=== PATIENT | female | born 1995 | race Caucasian/White ===

== ENCOUNTER → 2023-07-01 08:52 | Outpatient (CLI) | payer OTHER, SELFPAY ==
[2023-07-01 09:42] LABS: Add Manual Diff / Slide Review NO; Basophils Absolute Auto 0 /uL (0-100); Basophils Percent Auto 0.4 % (0-2); Eosinophils Absolute Auto 0 /uL (0-450); Eosinophils Percent Auto 0.6 % (2-4); Hematocrit 37.1 % (36-46); Hemoglobin 12.6 g/dL (12.0-16.0); Lymphocytes Absolute Auto 1000 /uL (1100-4500); Lymphocytes Percent Auto 20.4 % (25-40); Mean Corpuscular Hemoglobin 33.4 PG (26-34); Mean Corpuscular Volume 98.1 fL (80-100); Monocytes Absolute Auto 400 /uL (0-900); Neutrophils Absolute Auto 3600 /uL (1500-7000); Neutrophils Percent Auto 71.6 % (50-75); Platelet Count 209 X10^3/uL (150-400); Red Blood Cell Count 3.78 X10^6/uL (4.0-5.2); Red Cell Distribution Width 12.2 % (11.6-14.8)
[2023-07-01 10:15] LABS: Appearance Urine UA CLEAR; Bilirubin Urine UA NEGATIVE (NEGATIVE); Color Urine UA YELLOW; Glucose Urine UA NEGATIVE (Negative); Ketones Urine UA NEGATIVE (NEGATIVE); Leukocyte Esterase Urine UA NEGATIVE (NEGATIVE); Nitrite Urine UA NEGATIVE (Negative); Occult Blood Urine UA NEGATIVE (Negative); Protein Urine UA NEGATIVE (Negative); Urobilinogen Urine UA 0.2 E.U./dL (0.2)
[2023-07-01 11:30] LABS: Urine Chlamydia NOT DETECTED; Urine N gonorrhoeae NOT DETECTED
[2023-07-01 11:38] LABS: Hepatitis B Surface Antigen NEGATIVE s/c (NEGATIVE); Rubella Antibody IgG 6.7 IU/mL (>15)
[2023-07-01 11:48] LABS: HIV 1 & 2 Ab/Ag 4th Gen Combo NEGATIVE (NEGATIVE); Hep C Virus Ab w/Reflex Quant NEGATIVE s/c (NEGATIVE)
[2023-07-02 08:12] LABS: RPR Screen Non Reactive (Non Reactive)
[2023-07-02 08:36] LABS: Varicella IgG Antibody 1064 index (Immune >165)
== END ==
PROVIDERS: PCP Family Medicine; Referring Provider Family Medicine; Visit Provider Family Medicine
DX: Z34.01 Encounter for supervision of normal first pregnancy, first trimester (principal)
CPT/HCPCS: 36415; 80055; 81003; 86787; 86803; 86850; 86900; 86901; 87086; 87389; 87491; 87591

== ENCOUNTER → 2023-07-09 15:12 | Outpatient (CLI) | payer OTHER, SELFPAY ==
--- NOTE | 2023-07-09 15:12 | DI.US.S_ITS ---
PROCEDURE: US OB <= 14 WEEKS FETUS INDICATIONS: Dating US OUTSIDE/PRIOR DATING DATA: Last menstrual period (LMP): 04/04/2023 LMP-based estimated date of delivery (PARAMJIT): 01/09/2024 First dating scan (date and location): 07/09/2023 Estimated date of delivery (PARAMJIT) from first dating scan: 01/05/2024 TECHNIQUE: Real-time scanning was performed of the fetus, with image documentation and biometric measurements. Endovaginal scanning: Not performed. COMPARISON: None. FINDINGS: General: A single living intrauterine gestation is present. Presentation: Variable Placenta: Placental position is anterior possibly fundal, without previa. Amniotic fluid: Subjectively normal heart rate: 165 beats per minute. Maternal cervical canal: 3.4 cm long. Normal lower limit is 2.5 cm. biometrics: Biparietal diameter: 2.6 cm, 14 weeks 3 days Head circumference: 9.7 cm, 14 weeks 3 days Abdominal circumference: 8.2 cm, 14 weeks 4 days Femur length: 1.3 cm, 13 weeks 5 days Clinically estimated gestational age: 13 weeks 5 days Composite gestational age from present scan: 14 weeks 2 days IMPRESSION: Single intrauterine with estimated gestational age of 14 weeks 2 days corresponding to an ultrasound PARAMJIT of 01/05/2024. We strive to produce accurate, complete, and clear reports of imaging services. To assist us in improving patient care, this report was composed using standard report templates and voice recognition software. Therefore, it may contain abnormal punctuation, insertions and/or omissions. Occasional wrong-word or sound-alike substitutions may occur. Though we review the report and make efforts to correct it, we do recommend that the report be read carefully in proper context to recognize any text inaccuracies. Approved by: Laron Diaz M.D. on 07/09/2023 at 16:57
== END ==
LOC: US 15:12
PROVIDERS: PCP Family Medicine; Referring Provider Family Medicine; Visit Provider Family Medicine
DX: Z34.82 Encounter for supervision of other normal pregnancy, second trimester (principal); Z3A.14 14 weeks gestation of pregnancy
CPT/HCPCS: 76801

== ENCOUNTER → 2023-08-30 14:17 | Outpatient (CLI) | payer OTHER, SELFPAY ==
--- NOTE | 2023-08-30 14:18 | DI.US.S_ITS ---
PROCEDURE: US OB >= 14 WEEKS FETUS INDICATIONS: Anatomy of fetus OUTSIDE/PRIOR DATING DATA: Last menstrual period (LMP): 04/04/2023. LMP-based estimated date of delivery (PARAMJIT): 01/09/2024. First dating scan (date and location): 07/09/2023. Estimated date of delivery (PARAMJIT) from first dating scan: 01/05/2024. The calculations are made using the clinical PARAMJIT of 01/09/2024. TECHNIQUE: Real-time scanning was performed of the fetus, with image documentation and biometric measurements. Endovaginal scanning: Not performed. COMPARISON: [facility], , OB <= 14 WEEKS FETUS, 07/09/2023, 15:23. FINDINGS: General: A single living intrauterine gestation is present. Presentation: Vertex. Placenta: Placental position is posterior, without previa. Amniotic fluid index: 17.5 cm, normal range is 5-24 cm. Single deepest vertical pocket is 4.8 cm. heart rate: 153 beats per minute. Maternal cervical canal: 4 cm long. Normal lower limit is 2.5 cm. No funneling. biometrics: Biparietal diameter: 5.2 cm, 21 weeks 6 days Head circumference: 18.9 cm, 21 weeks 1 day Abdominal circumference: 18.0 cm, 22 weeks 6 days Femur length: 3.6 cm, 21 weeks 3 days Clinically estimated gestational age: 21 weeks 1 day Composite gestational age from present scan: 21 weeks 6 days Estimated weight and percentile: 473 g, 89th percentile Anatomic survey: Neuro: Ventricles are non-dilated at less than 10 mm. Cisterna magna is normal at 3-11 mm. Cerebellum is normal in size and morphology. Nuchal skin fold: Normal at less than 6 mm between 14-21 weeks gestational age. Face: Nose and lips, facial profile are normal. Spine: No evidence for spina bifida. Heart: 4-chambered heart is present, with normal ventricular outflow tracts. Diaphragm: Diaphragm is intact. Stomach: Left-sided stomach is present. Kidneys: No hydronephrosis. Normal is less than 5 mm in 2nd trimester, less than 7 mm in 3rd trimester. Cord: 3-vessel cord. Velamentous cord insertion. Bladder: Normal in size. Extremities: All 4 extremities identified. IMPRESSION: 1. Aguilar living intrauterine at 21 weeks 6 days based on today's ultrasound. This is concordant with the prior ultrasound. Fetus is in the 89th percentile for weight. 2. Normal amniotic fluid. Velamentous umbilical cord insertion. 3. Normal anatomic survey. Consider follow-up OB ultrasound. We strive to produce accurate, complete, and clear reports of imaging services. To assist us in improving patient care, this report was composed using standard report templates and voice recognition software. Therefore, it may contain abnormal punctuation, insertions and/or omissions. Occasional wrong-word or sound-alike substitutions may occur. Though we review the report and make efforts to correct it, we do recommend that the report be read carefully in proper context to recognize any text inaccuracies. Dictated by: Donald Silva M.D. on 08/30/2023 at 16:51 Approved by: Donald Silva M.D. on 08/30/2023 at 16:59
== END ==
LOC: US 14:17
PROVIDERS: PCP Family Medicine; Referring Provider Family Medicine; Visit Provider Family Medicine
DX: Z34.82 Encounter for supervision of other normal pregnancy, second trimester (principal); Z3A.21 21 weeks gestation of pregnancy
CPT/HCPCS: 76811

== ENCOUNTER → 2023-10-12 12:03 | Outpatient (CLI) | payer OTHER, SELFPAY ==
[2023-10-12 13:32] LABS: Add Manual Diff / Slide Review NO; Basophils Absolute Auto 0 /uL (0-100); Basophils Percent Auto 0.4 % (0-2); Eosinophils Absolute Auto 0 /uL (0-450); Eosinophils Percent Auto 0.6 % (2-4); Hematocrit 33.1 % (36-46); Hemoglobin 11.2 g/dL (12.0-16.0); Lymphocytes Absolute Auto 1200 /uL (1100-4500); Lymphocytes Percent Auto 15.3 % (25-40); Mean Corpuscular HGB Conc 33.9 % (30-36); Mean Corpuscular Hemoglobin 33.6 PG (26-34); Mean Corpuscular Volume 99.1 fL (80-100); Monocytes Absolute Auto 400 /uL (0-900); Monocytes Percent Auto 5.6 % (3-14); Neutrophils Absolute Auto 6300 /uL (1500-7000); Neutrophils Percent Auto 78.1 % (50-75); Platelet Count 215 X10^3/uL (150-400); Red Blood Cell Count 3.34 X10^6/uL (4.0-5.2); Red Cell Distribution Width 13.4 % (11.6-14.8); White Blood Cell Count 8.1 X10^3/uL (4.5-11.0)
[2023-10-12 13:45] LABS: Alanine Aminotransferase 11 IU/L (<35); Albumin 3.8 g/dL (3.5-5.0); Albumin Globulin Ratio 1.5 (1.0-2.8); Alkaline Phosphatase 37 U/L (38-126); Aspartate Aminotransferase 22 IU/L (14-36); Bilirubin Total 0.4 mg/dL (0.2-1.3); Blood Urea Nitrogen 8 mg/dL (7-17); Calcium 8.6 mg/dL (8.4-10.2); Carbon Dioxide 25 mmol/L (22-32); Chloride 109 mmol/L (98-107); Estimated Glomerular Filt Rate > 60 mL/min (>60); GTT (PREG) 1 Hour PP 50gm Dose 95 mg/dL (76-139); Globulin 2.6 g/dL (1.7-4.1); Glucose 95 mg/dL (70-100); HEMOLYSIS < 15 (0-50); Potassium 3.3 mmol/L (3.4-5.1); Sodium 135 mmol/L (137-145); Total Protein 6.4 g/dL (6.3-8.2)
[2023-10-12 13:50] LABS: Creatinine Urine Random 93.6 mg/dL
[2023-10-12 13:55] LABS: Protein (Total) Urine Random < 0.6 mg/dL (0-12)
[2023-10-12 14:16] LABS: Hepatitis B Surface Antigen NEGATIVE s/c (NEGATIVE); Rubella Antibody IgG 5.4 IU/mL (>15)
[2023-10-13 08:22] LABS: RPR Screen Non Reactive (Non Reactive)
== END ==
PROVIDERS: PCP Family Medicine; Referring Provider Family Medicine; Visit Provider Family Medicine
DX: Z34.80 Encounter for supervision of other normal pregnancy, unspecified trimester (principal); G43.909 Migraine, unspecified, not intractable, without status migrainosus
CPT/HCPCS: 36415; 80053; 80055; 82570; 82950; 84156

== ENCOUNTER → 2023-11-24 11:03 | Outpatient (CLI) | payer OTHER, SELFPAY ==
[2023-11-24 17:39] LABS: Appearance Urine UA CLEAR; Bilirubin Urine UA NEGATIVE (NEGATIVE); Color Urine UA YELLOW; Glucose Urine UA NEGATIVE (Negative); Ketones Urine UA 3+ (NEGATIVE); Leukocyte Esterase Urine UA NEGATIVE (NEGATIVE); Nitrite Urine UA NEGATIVE (Negative); Occult Blood Urine UA NEGATIVE (Negative); Protein Urine UA NEGATIVE (Negative); Urobilinogen Urine UA 0.2 E.U./dL (0.2)
[2023-11-24 17:40] LABS: pH Urine UA 6.5 (4.5-8.0)
[2023-11-24 17:46] LABS: Bacteria Urine Occasional (0-1); Culture Indicated Urine Specimen Cultured; RBC Urine 1-5/HPF (0-5/HPF); Squamous Epithelial Cell Urine 10-30 /HPF (0-5/HPF); Urine Volume 10mL (spun); WBC Urine 0-1/HPF (0-5/HPF)
== END ==
PROVIDERS: PCP Family Medicine; Visit Provider Family Medicine
DX: O26.899 Other specified pregnancy related conditions, unspecified trimester (principal); R10.9 Unspecified abdominal pain
CPT/HCPCS: 81001; 87086; 87210; 87491; 87591

== ENCOUNTER → 2023-12-15 11:58 | Outpatient (CLI) | payer OTHER, SELFPAY ==
[2023-12-16 08:13] LABS: Strep Grp B PCR NEG for Grp B Strep
== END ==
PROVIDERS: PCP Family Medicine; Visit Provider Family Medicine
DX: Z34.80 Encounter for supervision of other normal pregnancy, unspecified trimester (principal)
CPT/HCPCS: 87653

== ENCOUNTER 2023-12-17 03:54 | Inpatient (IN) | payer OTHER, SELFPAY ==
[2023-12-17 04:54] VITALS: BP 122/58
[2023-12-17 05:40] LABS: Add Manual Diff / Slide Review NO; Basophils Absolute Auto 0 /uL (0-100); Basophils Percent Auto 0.5 % (0-2); Eosinophils Absolute Auto 100 /uL (0-450); Eosinophils Percent Auto 1.1 % (2-4); Hematocrit 35.9 % (36-46); Hemoglobin 12.3 g/dL (12.0-16.0); Lymphocytes Absolute Auto 2000 /uL (1100-4500); Lymphocytes Percent Auto 23.5 % (25-40); Mean Corpuscular HGB Conc 34.1 % (30-36); Mean Corpuscular Hemoglobin 32.7 PG (26-34); Monocytes Absolute Auto 700 /uL (0-900); Monocytes Percent Auto 7.7 % (3-14); Neutrophils Absolute Auto 5700 /uL (1500-7000); Neutrophils Percent Auto 67.2 % (50-75); Platelet Count 197 X10^3/uL (150-400); Red Blood Cell Count 3.74 X10^6/uL (4.0-5.2); Red Cell Distribution Width 12.8 % (11.6-14.8); White Blood Cell Count 8.5 X10^3/uL (4.5-11.0)
[2023-12-17] MEDS: fentaNYL 100 MCG/2 ML INJ IV ×2 (06:07→07:01)
[2023-12-17] MEDS: LACTATED RINGERS 1,000 ML 100 ML IV (06:08)
[2023-12-17] MEDS: OXYTOCIN PREMIX 30 UNIT/500 ML PLAST..BAG 200 UNIT IV (06:08)
[2023-12-17] MEDS: LIDOCAINE 1% 20 ML INJ (06:14)
--- NOTE | 2023-12-17 06:47 | P.HPOB_ITS ---
OB HPI Date/Time Date of admission: 12/17/23 Date Patient Seen: 12/17/23 Time Patient Seen: 05:13 History of Present Condition Chief complaint: Labor : 3 Para: 1 Estimated Date of Delivery: 01/09/24 Estimated Gestational Age (weeks): 36w5d Narrative: Paris Seo is a 28 year old presenting at 36w5d with painful contractions occurring every 2-4 minutes and concern for rupture of membranes. On arrival, AmniSure was faintly positive so cervical check was performed and SVE was found to be 7 cm/90/0. 10 minutes after her cervical check she had witnessed spontaneous rupture of membranes with clear fluids. Her contraction frequency increased to every 2 minutes. was uncomplicated aside from velamentous cord insertion noted. Glucose tolerance test was normal, Tdap was given, blood type is A positive. She was GBS negative and did not require intrapartum prophylaxis. History of Present care: good care Dating criteria: LMP confirmed by 1st trimester US Obstetrical complications: none Medical complications: none Preadmission Labs Blood type: A (+) positive -: Antibody screen: negative, GBS status: negative, HBsAG: negative, HIV: negative and RPR/VDLR: negative -: Chlamydia screen: not detected and Gonorrhea screen: not detected -: Rubella: not immune and Varicella: immune HCT: 12.3 HCAB: negative PAP: Abnormal (abnormal 1 yr ago, needed colpo, discussed at visit and plan for PAP) 1 hr GTT: 95 Prior (ies) History: Prior delivery 39 weeks 5 days, 7 lb 15 oz , in 2019 Evaluation Evaluation Baseline heart rate: 140 Variability: Moderate (11-25) monitor accelerations: Present Monitor Decelerations: Absent Contraction Frequency (minutes): 4 Uterine Contraction Intensity: Strong/Firm Category of Tracing: Reactive Status: Category l Dilation (cm): 7 Effacement (%): 90 Dilation: >/=5 cm Effacement: >/=80% station: 0 Non-invasive Membranes Rupture Test: positive Comments: ROm occuring soon after exam and was whitnessed - clear fluid at 04:38AM on 12/17/23 [facility] Medical History (Updated 07/01/23 @ 12:03 by Aurora Xavier MD) Rubella non-immune status, antepartum Migraines Normal vaginal delivery Abnormal Pap smear of cervix Surgical History (Updated 06/28/23 @ 15:44 by Calli Bernabe, RN) H/O tooth extraction History of tonsillectomy [place] teeth extracted History of colposcopy (~07/15/22) Family History (Updated 06/28/23 @ 15:46 by Calli Bernabe, RN) Mother History of hysterectomy Ovarian cancer Social History marital status: unmarried,single number of children: 1 (Mostly lives w/ his dad in [place]) household members: friend(s) (roommates) lives independently: Yes caregiver/support person: Yes (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) housing: apartment (on waiting list for [facility] [address]) pets and animals: No education level: high school 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, 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) current occupational exposures/hazards: No special rodrigue needs: No travel history: recent ([place], domestic) seatbelt use: always water heater temp set < 120 deg: Yes working smoke detector in home: Yes fire extinguisher in home: Yes carbon monox detector in home: Yes firearms in home: No do you feel safe at home: Yes Smoking Status: Never smoker second hand exposure: No alcohol intake: former (occasionally when not ) substance use type: does not use during the past year weight has: remained stable well-balanced diet: about half the time daily servings fruits/ve-4 caffeine: Yes (AM cup coffee) Type(s) of exercise: walking Meds Home Medications and Allergies Home Medications Medication Instructions Recorded Confirmed Type vitamin-ferrous sulfate tab PO 06/28/23 12/15/23 History 27 mg iron-folic acid 0.8 mg tablet doxylamine succinate 25 mg tablet 25 mg PO BEDTIME PRN insomnia #30 07/01/23 12/15/23 Rx (Unisom (doxylamine)) tabs Allergies Allergy/AdvReac Type Severity Reaction Status Date / Time cefaclor [From Ceclor] Allergy Mild Rash Verified 12/15/23 10:32 Review of Systems Review of Systems Narrative: + contractions + slight pink vaginal bleeding + LOF OB Exam Vital signs Blood Pressure: 122/58 Pulse Rate: 103 Temperature: 36.1 F Narrative Exam Narrative: GEN: Healthy appearing, well-developed, uncomfortable appearing, laboring PSYCH: Good Judgment. AOx3. Normal memory, mood, and affect HEENT: -Head: NC/AT -Eyes: No discharge or redness CV: warm and well perfused LUNGS: breathing comfortably on RA ABd: Gravid : ant lip/100+1 on SVE SKIN: Warm, well perfused. No skin rashes or abnormal lesions MSK: Normal gait. No deformities NEURO: Ambulating with no limitations. No focal deficits Objective Labs 12/17/23 05:25 Labs: Laboratory Results - last 24 hr 12/17/23 05:25 WBC 8.5 RBC 3.74 L Hgb 12.3 Hct 35.9 L MCV 96.0 MCH 32.7 MCHC 34.1 RDW 12.8 Plt Count 197 Neut % (Auto) 67.2 Lymph % (Auto) 23.5 L [place] % (Auto) 7.7 Eos % (Auto) 1.1 L Baso % (Auto) 0.5 Neut # (Auto) 5700 Lymph # (Auto) 2000 [place] # (Auto) 700 Eos # (Auto) 100 Baso # (Auto) 0 Blood Type A Positive Antibody Screen Negative Assessment and Plan Assessment and Plan Assessment and Plan narrative: 28 year old presenting at 36w5d with painful contractions and SROM. #spontaneous onset of labor: - admit to LD - CBC - continuous monitoring - Nitrous for now, epidural if anesthesia available prior to complete dilation - GBS negative - Blood type A+, Ab negative - Support person Jarek not present, working on getting a flight in from [place], friend Julia present # vilamentous cord insertion - awareness with placenta delivery
[2023-12-17 07:06] VITALS: BP 122/58; PULSE 103; TEMP 2.3; TEMP 36.1
--- NOTE | 2023-12-17 07:07 | PM.OBPRVD ---
Events: Labor < 37 wks and Other (Vilamentous cord ) Labor & Delivery Delivery date: 12/17/23 Intrapartal Events: Precipitous Labor < 3 hours Cervical ripening method: none Induction method: none Delivery monitor: external FHT Route of delivery: L&D Laceration Description: Perineal - 1st Degree Delivery repair: vicryl (4-0) Estimated blood loss (mL): 150 Anesthesia Type: Other (Nitrous) Complications: None Narrative: PROCEDURE: at 36w5d presented with contractions occuring every 2-4 min and, during evaluation, SROM with clear fluid, and was admitted to Labor and Delivery. ROM occured at 04:38am with clear fluid. The patient progressed quickly from 7cm to complete dilation. Pain was controlled with nitrous. The patient delivered a viable male infant with APGARs 9/9 at 05:56 via . The cord was cut and clamped after a 60 second delay. The placenta delivered with gentle cord traction, and appeared complete but was vilamentous. The perineum and vagina were inspected with a small 1st degree perineal laceration. This was repaired in the usual fashion. She was given a dose of fentanyl prior to the repair due to pain Needle and sponge counts were correct.? The vagina was inspected and no items were left in situ. Paris is doing well with Janes, working on trial of breast feeding PREPROCEDURE DIAGNOSIS: Intrauterine at 36w5d GBS neg RH pos POSTPROCEDURE DIAGNOSIS: Intrauterine [id number], delivered Same as preprocedure vilamentous cord insertion Plan for aftercare: Routine care
[2023-12-17] MEDS: PRENATAL VIT,CALC/IRON/FOLIC 1 TABLET 1 TAB PO (08:38)
[2023-12-17] MEDS: ACETAMINOPHEN 325 MG TABLET 650 MG PO ×3 (08:38→22:34)
[2023-12-17] MEDS: IBUPROFEN 600 MG TABLET PO ×3 (08:38→22:34)
[2023-12-18] MEDS: IBUPROFEN 600 MG TABLET PO (05:46)
[2023-12-18] MEDS: ACETAMINOPHEN 325 MG TABLET 650 MG PO (05:47)
[2023-12-18] MEDS: PRENATAL VIT,CALC/IRON/FOLIC 1 TABLET 1 TAB PO (08:43)
--- NOTE | 2023-12-18 10:24 | P.DS_ITS ---
Discharge Providers Provider Date of admission: 12/17/23 03:54 Discharge Date: 12/18/23 Primary care physician: Aurora Xavier MD Consults: 12/18/23 07:24 Consult to Marine Propulsion Technician Routine Comment: Discharge provider: Carmencita Liriano MD Summary Hospital Course Date Patient Seen: 12/18/23 Hospital Course: Paris Seo is a 28 year old [id number] who presented at 36w5d in labor. was uncomplicated aside from velamentous cord insertion noted. Glucose tolerance test was normal, Tdap was given, blood type is A positive. She was GBS negative and did not require intrapartum prophylaxis. Delivery uncomplicated. Hospitalization uncomplicated. Bleeding WNL. Pain well controlled with Ibuprofen and APAP. Voiding, ambulating, eating and passing gas. Mood good. Breast feeding and using formula. VS WNL. Peripartum Data Infant Delivery Method: Natural Vaginal Laceration Description: None Time Spent with Patient Time attestation: Total time spent providing and/or coordinating discharge services: 20 minutes Time spent: Less than 30 minutes Objective Labs 12/17/23 05:25 Exam Narrative Exam Narrative: GEN: NAD, well appearing, pleasant CV: RRR Pulm:normal WOB, CTAB ABD: fundus firm below U Skin: no visible rashes, WWP Psych: normal affect Discharge Plan Discharge Plan Patient Disposition: Home Discharge orders & Medications Prescriptions: New acetaminophen 325 mg capsule 650 mg PO Q6HR 10 Days Qty: 60 0RF ibuprofen 600 mg Tablet 600 mg PO Q6HR PRN (Reason: Pain, Mild (1-3)) Qty: 60 0RF Continued vit-ferrous sulfat-FA 27 mg iron- 0.8 mg tablet PO Discontinued Unisom (doxylamine) 25 mg tablet 25 mg PO BEDTIME PRN (Reason: insomnia) Qty: 30 3RF Follow up/Referrals: Aurora Xavier MD [Primary Care Provider] - 6 Weeks (See Dr. Kaiser Friday, January 26, 2024 @ 11:00am) Diet/Activity/Treatments Diet: Diet as Tolerated and Regular Visit Report/Discharge Packet Stand Alone Forms: Patient Portal/API, Stroke Signs & Symptoms Discharge Data Primary Care Provider: Aurora Xavier
== END 2023-12-18 14:10 | disposition home or self-care (01) | DRG 807 ==
PROVIDERS: Admitting Provider Family Medicine; PCP Family Medicine; Referring Provider Family Medicine; Visit Provider Family Medicine
DX: O60.14X0 Preterm labor third trimester with preterm delivery third trimester, not applicable or unspecified (principal); Z37.0 Single live birth; O70.0 First degree perineal laceration during delivery; Z3A.36 36 weeks gestation of pregnancy
CPT/HCPCS: 59050; 84112; 85025; 86850; 86900; 86901; G0379; J2590; J3010

== ENCOUNTER → 2024-11-20 09:00 | Outpatient (CLI) | payer OTHER, SELFPAY ==
[2024-11-20 10:26] LABS: HCG Quantitative /Beta subunit 1037.2 mIU/mL
== END ==
PROVIDERS: PCP Family Medicine; Referring Provider Family Medicine; Visit Provider Family Medicine
DX: Z32.01 Encounter for pregnancy test, result positive (principal)
CPT/HCPCS: 36415; 84702